=== PATIENT | female | born 2000 | race Caucasian/White ===

== ENCOUNTER 2023-11-09 03:45 | Emergency (ER) | payer OTHER, SELFPAY ==
[2023-11-09] VITALS (7 sets, daily range): BP systolic 131–145; BP diastolic 57–93; PULSE 86–90
--- NOTE | 2023-11-09 04:01 | ED.GENMED ---
History of Present Illness
General
Chief Complaint: Fainting/Passed Out
Source: patient, family and ambulance crew
Exam Limitations: none
Time Seen by Provider: 11/09/23 04:00
Nursing documentation reviewed up to this point in time: agreed with
History of Present Illness
History of Present Illness:
Pleasant 23-year-old female that presents with a syncopal episode. She was sitting on the toilet when she passed out. Falling forward hitting her lower lip. Patient has a history of POTS and mild autism.
Past History
Social History
Tobacco: Non-smoker
Alcohol: None
Drug: None
Review of Systems
Review of Systems
Allergies reviewed?: Yes
Other source history: family and ambulance crew
All Other Systems: ROS reviewed and negative except as documented in HPI and ROS
Psychiatric: Reports anxiety
Phy Exam
Physical Exam
Physical Exam:
Physical Exam
Vital signs and allergy list reviewed and agreed with.
GENERAL: Alert , in minimal apparent distress. Accompanied by parents at the bedside.
EYE: pupils equal, EOMI, anicteric
NECK: Supple, no significant adenopathy. No masses. Trachea midline
ENT: Oropharynx is clear, mmm.
CARDIAC: Regular rate and rhythm . No M/R/G
LUNGS: Clear breath sounds bilaterally, no acute respiratory distress, no wheezes/rales/rhonchi
ABDOMEN: Soft, without focal tenderness, no r/g, no cvat. Normal BSx4q
NEUROLOGICAL: Alert and oriented, no focal neuro deficits
SKIN: Warm and dry, skin intact.
MUSCULOSKELETAL: No edema, well perfused. Moves all 4 extremities
PSYCH: Normal and appropriate interaction.
Course
Orders/Labs/Results
Orders:
Orders
11/09/23 04:01
0.9% Sodium Chloride 1000 ml [Nss] 1,000 ml IV BOLUS
11/09/23 04:09
Electrocardiogram (*1) Urgent
Reason for Study: Other
Other Reason for Exam: Respiratory Distress
Cardiac Monitoring- Treatment ONCE
EKG- Treatment ONCE
11/09/23 04:10
Complete Blood Count/With Diff Urgent
Comprehensive Metabolic Panel Urgent
11/09/23 05:06
Orthostatic VS- Treatment ONCE
11/09/23 05:07
Test Result ONCE
11/09/23 06:03
HCG, Urine Qualitative Screen Urgent
Date Specimen was Collected: 11/09/23
Time Specimen was Collected: 05:52
Urinalysis Reflex To Culture Urgent
Date Specimen was Collected: 11/09/23
Time Specimen was Collected: 05:52
Abnormal Lab Results
11/09/23
04:10
MPV 10.6 H fL
(7.4-10.4)
Abs Immat Gran (auto) 0.1 H 10^3/uL
(0-0.05)
11/09/23 04:10
11/09/23 04:10
Vital Signs
Initial and Last Documented VS:
Initial Vital Signs
Pulse Resp BP Pulse Ox
106 17 131/65 100
11/09/23 03:52 11/09/23 03:52 11/09/23 03:52 11/09/23 03:52
Last Documented Vital Signs
Pulse Resp BP Pulse Ox
87 19 133/57 98
11/09/23 06:45 11/09/23 06:45 11/09/23 06:03 11/09/23 06:45
*Critical Care Note
Total Time (30-74mins, 75-104mins- exclusive of procedures): Not Applicable
ED Attending Note
-
Portions of this chart may have been created with voice recognition software.� Occasional wrong word or��sound alike� substitutions may have occurred due to the inherent limitations of voice recognition software.
Discharge Plan
Departure
Patient Disposition: Home (Routine Discharge)
Date of Disposition: 11/09/23
Time of Disposition: 06:24
Patient with high blood pressure during this ER visit?: Yes
Condition: Good
Discharge Problem:
Syncope and collapse, Postural orthostatic tachycardia syndrome [POTS]
Instructions: Syncope (Fainting) (DC), Abrasions ED, BLOOD PRESSURE
Prescriptions:
No Action
Vitamin D
1 tab PO HS
amoxicillin-pot clavulanate 875 MG/125 MG tablet
1 tab PO BID Qty: 20 0RF
guaifenesin [Mucus Relief ER] 600 MG tablet extended release 12hr
600 mg PO Q12H PRN (Reason: cough/congestion) Qty: 20 0RF
Activity Restrictions/Additional Instructions:
It was a pleasure meeting you and taking part in your care. We hope for your continued healing and wellness.
Please read discharge instructions in their entirety. However, they are for general education and may not describe your exact diagnosis at discharge. Information on your ER visit and medical conditions were discussed with you along with appropriate
follow up information...
If indicated, please take your medications as instructed and indicated on discharge paperwork.
Please schedule a follow up appointment as directed. Call to schedule an appointment
Please return to the emergency department with ANY change in, persisting, or worsening of symptoms. If any of your symptoms do not improve, or persist, or become more severe within 6-12 hours, please return to the emergency department for further
care.
Please return to the emergency department if you develop a headache, neck pain/stiffness, fever greater than 100.4F, chest pain, shortness of breath, persistent nausea, vomiting, slurred speech, difficulty walking, numbness/tingling, weakness, signs
of infection or any other symptoms that are worrisome to you.
If you have any questions or concerns please do not hesitate to call the Hospital at or E-mail me directly at [email or web address]
Interventions
Interventions:
*Risk Screen - Suicide Last Done: 11/09/23 03:52
*General Assessment Last Done: 11/09/23 03:52
*Neglect/Abuse Screening Last Done: 11/09/23 03:52
ED- Fall Risk Assessment Last Done: 11/09/23 03:52
*ED COVID-19 Vaccine History Last Done: 11/09/23 03:52
*Nursing Disposition Last Done: 11/09/23 07:54
ED- Cardiac Assessment Last Done: 11/09/23 04:24
ED- Neurological Assessment Last Done: 11/09/23 04:24
Discharge Date and Time
Discharge Date/Time: 11/09/23 07:55
Print Language: INDIAN
[2023-11-09] MEDS: NSS 1000 IV (04:07)
[2023-11-09 04:26] LABS: % Basophils 0.6 % (0-2); % Eosinophils 1.1 % (0-6); % Immature Granulocytes 0.5 % (0-0.5); % Lymphocytes 32.1 % (20.5-51.1); % Neutrophils 59.7 % (42.2-75.2); Absolute Basophils 0.1 10^3/uL (0-0.2); Absolute Eosinophils 0.1 10^3/uL (0-0.7); Absolute Immature Granulocytes 0.1 10^3/uL (0-0.05); Absolute Lymphocytes 3.3 10^3/uL (1.2-3.4); Absolute Monocytes 0.6 10^3/uL (0.1-0.6); Absolute Neutrophils 6.2 10^3/uL (1.4-6.5); Hematocrit 40.4 % (37.0-47.0); Hemoglobin 13.8 g/dL (12.0-16.0); Mean Corp Hgb Conc. 34.2 g/dL (33.0-37.0); Mean Corpuscular Hgb 30.2 pg (27.0-31.0); Mean Corpuscular Volume 88.4 fL (81.0-99.0); Mean Platelet Volume 10.6 fL (7.4-10.4); Nucleated Red Blood Cells % 0 %; Platelet Count 272 10^3/uL (130-400); Red Blood Cell Count 4.57 10^6/uL (4.20-5.40); Red Cell Dist. Width 13.6 % (11.5-14.5); White Blood Cell Count 10.3 10^3/uL (4.8-10.8)
[2023-11-09 04:45] LABS: ALT (SGPT) 16 U/L (0-35); AST (SGOT) 19 U/L (14-36); Albumin 4.1 g/dl (3.5-5.0); Alkaline Phosphatase 66 U/L (38-126); Blood Urea Nitrogen 12 mg/dl (7-17); Calcium 9.7 mg/dl (8.4-10.2); Carbon Dioxide 24 mmol/L (22-30); Chloride 105 mmol/L (98-107); Glucose 93 mg/dl (70-99); Sodium 139 mmol/L (135-145); Total Bilirubin 0.8 mg/dl (0.2-1.3); Total Protein 6.7 g/dl (6.3-8.2); eGFR > 60.00
[2023-11-09 06:54] LABS: Urine Albumin Negative (Neg - Trace); Urine Bilirubin Negative (Negative); Urine Character Clear (Clear); Urine Color Yellow; Urine Glucose Negative (Negative); Urine Ketone Negative (Negative); Urine Leukocyte Negative (Negative); Urine Nitrite Negative (Negative); Urine Occult Blood Negative (Negative); Urine Specific Gravity 1.005 (<1.030); Urine Urobilinogen Negative (Neg - 1+)
[2023-11-09 07:05] LABS: HCG, Urine Qualitative Screen Negative
== END 2023-11-09 07:55 | disposition home or self-care (01) ==
LOC: EMR 03:45
PROVIDERS: EMERGENCY PHYSICIAN Student in an Organized Health Care Education/Training Program; FAMILY PHYSICIAN Physician Assistant Medical
DX: R55 Syncope and collapse (principal); G90.A Postural orthostatic tachycardia syndrome [POTS]; S01.511A Laceration without foreign body of lip, initial encounter; W18.11XA Fall from or off toilet without subsequent striking against object, initial encounter; Y93.E8 Activity, other personal hygiene; R03.0 Elevated blood-pressure reading, without diagnosis of hypertension; F84.0 Autistic disorder
CPT/HCPCS: 99284; 96360; 80053; 81003; 81025; 85025; 93005

== ENCOUNTER → 2023-12-31 13:02 | Outpatient (REF) | payer OTHER, SELFPAY | LOC: RCS 13:02 | PROVIDERS: ATTENDING PHYSICIAN Internal Medicine Cardiovascular Disease; FAMILY PHYSICIAN Family Medicine | DX: R55 Syncope and collapse (principal) | CPT/HCPCS: 93306 ==